=== PATIENT | male | born 1985 | race Caucasian/White ===

== ENCOUNTER 2016-08-09 14:57 | Emergency (ER) | payer BC, OTHER ==
[~2016-08-09] VITALS: Ht 177.8 cm; Wt 80.0 kg
[~2016-08-09 14:57] MED LIST: NAPR500 PO; Z.0.NO CURRENT MEDS
[2016-08-09 14:59] VITALS: BP 140/77; PULSE 16; PULSE 76; RESP 16; TEMP 98; O2SAT 99
[2016-08-09] MEDS ORDERED: NAPROXEN 500 MG TAB PO ONE (15:30)
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
[2016-08-09] MEDS ORDERED: NAPR500 PO (17:14)
[2016-08-09] MEDS ORDERED: HYDR-3533 PO (17:14)
== END 2016-08-09 17:45 | disposition home or self-care (01) ==
LOC: NEPD 14:57
DX: S99.922A Unspecified injury of left foot, initial encounter (principal); V86.69XA Passenger of other special all-terrain or other off-road motor vehicle injured in nontraffic accident, initial encounter; Y93.9 Activity, unspecified; Y92.9 Unspecified place or not applicable; Y99.9 Unspecified external cause status
CPT/HCPCS: 73630; 73700; 99284; E0113